=== PATIENT | male | born 1965 | race Caucasian/White ===

== ENCOUNTER 2018-10-03 08:36 | Emergency (ER) | payer SELFPAY ==
[2018-10-03] MEDS ORDERED: ASPIRIN 81 MG TABLET, CHEWABLE PO ONE ×2 (09:03→09:53)
[2018-10-03] MEDS ORDERED: MORPHINE SULFATE 10 MG/ML INJ IV ONE ×4 (09:14→19:45)
[2018-10-03] MEDS ORDERED: ONDANSETRON HCL INJ/PF 4 MG/2 ML SDV IV ONE (09:14)
[2018-10-03 09:18] LABS: ABSOLUTE EOSINOPHILS # (AUTO) 0.1 10^3/uL (0.0-0.6); ABSOLUTE LYMPHOCYTES (AUTO) 2.1 10^3/uL (0.5-4.7); ABSOLUTE MONOCYTES (AUTO) 0.4 10^3/uL (0.1-1.4); ABSOLUTE NEUT (AUTO) 11.3 10^3/uL (1.7-8.2); BASOPHILS % (AUTO) 0.3 % (0-2); HEMATOCRIT 42.6 % (37.9-51.0); HEMOGLOBIN 14.4 g/dL (13.5-17.0); LYMPHOCYTES % (AUTO) 14.8 % (13-45); MEAN CORPUSCULAR HEMOGLOBIN 30.6 pg (27.0-33.4); MEAN CORPUSCULAR HGB CONC 33.7 g/dL (32.0-36.0); MEAN CORPUSCULAR VOLUME 91 fl (80-97); MONOCYTES % (AUTO) 2.8 % (3-13); PLATELET COUNT 374 10^3/uL (150-450); RED BLOOD COUNT 4.68 10^6/uL (4.35-5.55); RED CELL DISTRIBUTION WIDTH 13.5 % (11.5-14.0); SEGMENTED NEUTROPHILS % (AUTO) 81.1 % (42-78); TOTAL CELLS COUNTED % (AUTO) 100 %; WHITE BLOOD COUNT 13.9 10^3/uL (4.0-10.5)
--- NOTE | 2018-10-03 09:35 | RADIOLOGY REPORT (SQ) ---
EXAM DESCRIPTION: CHEST SINGLE VIEW COMPLETED DATE/TIME: 10/03/2018 9:25 am REASON FOR STUDY: CHEST PAIN COMPARISON: CT ANGIO CHEST SAME DATE EXAM PARAMETERS: NUMBER OF VIEWS: One view. TECHNIQUE: Single frontal radiographic view of the chest acquired. RADIATION DOSE: NA LIMITATIONS: None. FINDINGS: LUNGS AND PLEURA: No opacities, masses or pneumothorax. No pleural effusion. MEDIASTINUM AND HILAR STRUCTURES: No masses. Contour normal. HEART AND VASCULAR STRUCTURES: Heart normal in size. Normal vasculature. BONES: No acute findings. HARDWARE: None in the chest. OTHER: No other significant finding. IMPRESSION: NO ACUTE RADIOGRAPHIC FINDING IN THE CHEST. TECHNICAL DOCUMENTATION: JOB ID: [id number] [employer]- All Rights Reserved Reading location - IP/workstation name: [email or web address]
[2018-10-03 09:44] LABS: ALANINE AMINOTRANSFERASE 38 U/L (21-72); ALBUMIN 4.4 g/dL (3.5-5.0); ALKALINE PHOSPHATASE 50 U/L (38-126); ANION GAP 8 (5-19); ASPARTATE AMINO TRANSFERASE 23 U/L (17-59); BILIRUBIN,DIRECT 0.2 mg/dL (0.0-0.4); BILIRUBIN,TOTAL 0.3 mg/dL (0.2-1.3); BLOOD UREA NITROGEN 15 mg/dL (7-20); CALCIUM 10.3 mg/dL (8.4-10.2); CARBON DIOXIDE 24 mmol/L (22-30); CHLORIDE 106 mmol/L (98-107); CREATINE KINASE 171 U/L (55-170); GLUCOSE 135 mg/dL (75-110); POTASSIUM 4.4 mmol/L (3.6-5.0); SODIUM 137.9 mmol/L (137-145); TOTAL PROTEIN 7.6 g/dL (6.3-8.2)
[2018-10-03 09:54] LABS: CREATINE KINASE MB 2.03 ng/mL (<4.55)
[2018-10-03 09:59] LABS: TROPONIN I < 0.012 ng/mL
--- NOTE | 2018-10-03 10:00 | RADIOLOGY REPORT (SQ) ---
EXAM DESCRIPTION: CTA CHEST COMPLETED DATE/TIME: 10/03/2018 9:42 am REASON FOR STUDY: Substernal upper back,cool,clammy, unequal radial COMPARISON: AP chest 10/03/2018 TECHNIQUE: CT scan of the chest performed using helical scanning technique with dynamic intravenous contrast injection. Images reviewed with lung, soft tissue and bone windows. Reconstructed coronal and sagittal MPR images reviewed. Additional 3 dimensional post-processing performed to develop Maximal Intensity Projection images ([place] P). All images stored on PACS. All CT scanners at this facility use dose modulation, iterative reconstruction, and/or weight based d osing when appropriate to reduce radiation dose to as low as reasonably achievable (ALARA). [facility]: Dose Right [facility]: CareDose [facility]: Dose Right [facility]: Teradose 4D [facility]: [employer] CONTRAST TYPE AND DOSE: contrast/concentration: Isovue 350.00 mg/ml; Total Contrast Delivered: 70.0 ml; Total Saline Delivered: 60.0 ml Contrast bolus optimized for the thoracic aorta. Suboptimal contrast bolus for pulmonary emboli RENAL FUNCTION: Deferred due to severity of the patient's condition RADIATION DOSE: CT Rad equipment meets quality standard of care and radiation dose reduction techniq ues were employed. CTDIvol: 21.2 - 29.8 mGy. DLP: 849 mGy-cm. . LIMITATIONS: None. FINDINGS: LUNGS AND PLEURA: No masses, infiltrates, or pneumothorax. No pleural effusions or pleura l calcifications. AORTA AND GREAT VESSELS: No thoracic aortic aneurysm. No thoracic aortic dissection. HEART: No pericardial effusion. Proximal LAD coronary artery calcification, axial images 65-67. PULMONARY ARTERIES: Bolus not timed for pulmonary artery evaluation. HILAR AND MEDIASTINAL STRUCTURES: No identified masses or abnormal nodes. HARDWARE: None in the chest. UPPER ABDOMEN: Multiple calcified stones in the gallbladder without pericholecystic fluid. Subcentim eter cysts in the left and right lobe liver. THYROID AND OTHER SOFT TISSUES: Mild gynecomastia BONES: No acute or significant finding. 3D MIPS: Confirm above findings. OTHER: No other significant finding. IMPRESSION: No CT angio evidence of thoracic aortic dissection. Results discussed with Dr. Walter, 0 940 hours 10/03/2018. COMMENT: Quality ID # [id number]: Final reports with documentation of one or more dose reduction techniques (e.g., Automated exposure control, adjustment of the mA and/or kV according to patient size, use of iterative reconstruction technique) TECHNICAL DOCUMENTATION: JOB ID: [id number] [employer] [facility] [employer]- All Rights Reserved Reading location - IP/workstation name: [email or web address]
[2018-10-03] MEDS ORDERED: MAG HYDROX/AL HYDROX/SIMETH SUSP 30 ML UDCUP PO ONE (10:30)
[2018-10-03] MEDS ORDERED: LIDOCAINE 2% VISCOUS SOLN 20 ML UDCUP PO ONE (10:30)
--- NOTE | 2018-10-03 12:21 | RADIOLOGY REPORT (SQ) ---
EXAM DESCRIPTION: U/S ABDOMEN LIMITED W/O DOP COMPLETED DATE/TIME: 10/03/2018 11:52 am REASON FOR STUDY: Multiple large stones. Chest pain. COMPARISON: None. TECHNIQUE: Dynamic and static grayscale images acquired of the abdomen and recorded on PACS. Additio jade selected color Doppler and spectral images recorded. LIMITATIONS: None. FINDINGS: PANCREAS: No masses. Visualized pancreatic duct normal caliber. LIVER: No masses. Increased echogenicity. Echotexture normal. LIVER VASCULATURE: Normal directional flow of the main portal vein and hepatic veins. GALLBLADDER: Multiple large gallstones. Normal wall thickness. No pericholecystic fluid. ULTRASOUND-DETECTED BELL'S SIGN: Negative. INTRAHEPATIC DUCTS AND COMMON DUCT: CBD and intrahepatic ducts normal caliber. No filling defects. INFERIOR VENA CAVA: Normal flow. AORTA: No aneurysm. RIGHT KIDNEY: Normal size. Normal echogenicity. No solid or suspicious masses. No hydronephrosis. No calcifications. PERITONEAL AND RIGHT PLEURAL SPACE: No ascites or effusions. OTHER: No other significant findings. IMPRESSION: 1. Multiple large gallstones without evidence of acute cholecystitis. No gallbladder w all thickening. No pericholecystic fluid. Negative sonographic Bell's sign. 2. Hepatic steatosis. TECHNICAL DOCUMENTATION: JOB ID: [id number] [employer]- All Rights Reserved Reading location - IP/workstation name: [email or web address]
--- NOTE | 2018-10-03 12:51 | EKG REPORT ---
SEVERITY:- NORMAL ECG - SINUS RHYTHM : Confirmed by: Deng Jean-Baptiste MD 03-Oct-2018 12:50:14
--- NOTE | 2018-10-03 14:43 | ER Document Report ---
Entered by PANKAJ CLEANING SCRIBE 10/03/18 0918 Acting as scribe for:RENEE KAY MD ED General - General Chief Complaint: Chest Pain > 30 Stated Complaint: CHEST PAIN Time Seen by Provider: 10/03/18 09:04 Mode of Arrival: Ambulatory Information source: Patient Notes: Patient is a 53 year old male with a prior history of drug abuse presents to the emergency department complaining of chest pain onset around 0600 this morning. Patient describes the pain as severe that is located substernally and radiates into his upper back. He states he had identical symptoms a few weeks ago that resolved after a few hours. He denies any exacerbating or relieving factors. When asked about heartburn, he denies this while his states he has been taking her heartburn medications recently and he was taking a lot of Tums last night. Patient states the last time he saw a doctor was when he came to the emergency room here on 01/12/2016 for foreign body to the eye. He takes no regular medications. The patient reports that he used to abuse crack cocaine and methamphetamine regularly. He states he has not used anything since 2015. When he was seen here in January 2016, the chart noted that he was "in recovery" at that time. TRAVEL OUTSIDE OF THE [place] IN LAST 30 DAYS: No - Related Data Allergies/Adverse Reactions: No Known Allergies Allergy (Verified 10/03/18 08:39) Past Medical History - General Information source: Patient - Social History Smoking Status: Former Smoker Cigarette use (# per day): No Chew tobacco use (# tins/day): No Smoking Education Provided: No Frequency of alcohol use: None Family History: Reviewed & Not Pertinent Psychiatric Medical History: Reports: Hx Bipolar Disorder Review of Systems - Review of Systems Constitutional: No symptoms reported EENT: No symptoms reported Cardiovascular: See HPI, Chest pain Respiratory: No symptoms reported Gastrointestinal: See HPI Genitourinary: No symptoms reported Musculoskeletal: No symptoms reported Skin: No symptoms reported Hematologic/Lymphatic: No symptoms reported Neurological/Psychological: No symptoms reported -: Yes All other systems reviewed and negative Physical Exam - Vital signs Vitals: Temp Pulse Resp BP Pulse Ox 97.3 F 58 L 18 163/82 H 100 10/03/18 08:46 10/03/18 08:46 10/03/18 08:46 10/03/18 08:46 10/03/18 08:46 - Notes Notes: GENERAL: Alert, appears uncomfortable, writhing in bed. Hyperventilating. HEAD: Normocephalic, atraumatic. EYES: Pupils equal, round, and reactive to light. Extraocular movements intact. ENT: Oral mucosa moist, tongue midline. NECK: Full range of motion. Supple. Trachea midline. LUNGS: Hyperventilating. Clear to auscultation bilaterally, no wheezes, rales, or rhonchi. No respiratory distress. No tenderness to chest wall. HEART: Regular rate and rhythm. No murmurs, gallops, or rubs. ABDOMEN: Soft, No RUQ tenderness to deep palpation. Non-distended. Bowel sounds present in all 4 quadrants. No guarding, rigidity, or rebound. EXTREMITIES: Moves all 4 extremities spontaneously. Right radial pulse is weaker on the right than left. NEUROLOGICAL: Alert and oriented x3. Normal speech. PSYCH: Normal affect, normal mood. SKIN: Cool, clammy, diaphoretic. BACK: No tenderness to palpation. Course - Re-evaluation Re-evalutation: 10/03/18 10:22 The patient CTA chest did not show an explanation for his discomfort. There was no aortic dissection. There was noted to be significant calcification to the proximal LAD coronary artery. He also had multiple large gallstones without pericholecystic fluid or gallbladder wall thickening. He does not show any tenderness to right upper quadrant abdomen palpation. His EKG does not show ischemic changes. I did place a call to the [facility] cardiac connection. We will send the CT images along with the demographic page and she will have 1 of their foreign language stenographer look at the scans. 10/03/18 11:08 I discussed the case with the responding foreign language stenographer at [facility]. He felt that since there are no EKG changes, no troponin elevation, that he should be seen by foreign language stenographer here and would be happy to take the patient for catheterization if the local foreign language stenographer felt it should be done. I immediately called Dr. Dye and discussed the case with him. He is in his office and will pull up the CT films and look at them and call me back. 10/03/18 12:29 Dr. Spivey did call me back and felt that the symptoms were not likely cardiac. I did have a gallbladder ultrasound showing multiple large stones but no pericholecystic fluid or gallbladder wall thickening. He requests that I do a HIDA scan to see if that is where his symptoms are coming from. The patient stated that the GI cocktail did not improve his symptoms at all, only the pain medications. 10/03/18 14:33 Unable to do Hida scan due to the narcotic management of his pain. I discussed this with Dr. Dye, and at that point he stated the patient should probably go to [facility] and get a catheterization. 10/03/18 14:[address] a call to refer direct, and they are going to talk with the cardiac connection and then call me back. 10/03/18 14:53 The cardiac fellow with cardiac connection called back and we discussed the case again. He wanted to know why I was consulting him, and I told him I had called this time requesting to speak with the hospitalist. They are going to page the hospitalist at this time. 10/03/18 15:14 Referred direct called back and stated a Dr. New would accept the patient on the hospitalist service. - Vital Signs Vital signs: Temp Pulse Resp BP Pulse Ox 97.3 F 58 L 15 137/58 H 96 10/03/18 08:46 10/03/18 08:46 10/03/18 13:03 10/03/18 13:03 10/03/18 13:03 - Laboratory Result Diagrams: 10/03/18 09:00 10/03/18 09:00 Laboratory results interpreted by me: 10/03/18 10/03/18 10/03/18 09:00 09:00 09:00 WBC 13.9 H Seg Neutrophils % 81.1 H Monocytes % 2.8 L Absolute Neutrophils 11.3 H Glucose 135 H Calcium 10.3 H Creatine Kinase 171 H Lipase 316.0 H - Diagnostic Test Radiology reviewed: Image reviewed, Reports reviewed - CTA of the chest does not show aortic dissection. There is areas of heavy calcification in the left anterior descending coronary artery. There are multiple large calcified gallstones in the gallbladder. The gallbladder ultrasound has a negative Bell sign, multiple large stones, no pericholecystic fluid or gallbladder wall thickening. - EKG Interpretation by Me EKG shows normal: Sinus rhythm, [place], Intervals, QRS Complexes, ST-T Waves Rate: Normal - 63 Rhythm: NSR - Transfer of Care Care transferred to following provider: Dr. Thompson Notes: 10/03/18 15:53 Patient is currently waiting on bed assignment at [facility]. Discharge - Discharge Clinical Impression: Chest pain Qualifiers: Chest pain type: unspecified Qualified Code(s): R07.9 - Chest pain, unspecified Coronary artery disease Qualifiers: Coronary Disease-Associated Artery/Lesion type: due to calcified coronary lesion Qualified Code(s): I25.10 - Atherosclerotic heart disease of [place] coronary artery without angina pectoris; I25.84 - Coronary atherosclerosis due to calcified coronary lesion High blood pressure Qualifiers: Hypertension type: essential hypertension Qualified Code(s): I10 - Essential (primary) hypertension Condition: Stable Disposition: [facility] I personally performed the services described in the documentation, reviewed and edited the documentation which was dictated to the scribe in my presence, and it accurately records my words and actions.
[2018-10-03] MEDS ORDERED: NORMAL SALINE 1000 ML 1,000 ML IV ONE (14:52)
[2018-10-03 15:50] LABS: APPEARANCE,URINE CLEAR; BILIRUBIN,URINE NEGATIVE (NEGATIVE); COLOR,URINE YELLOW; GLUCOSE, URINE NEGATIVE (NEGATIVE); KETONES,URINE NEGATIVE (NEGATIVE); LEUKOCYTE ESTERASE,URINE NEGATIVE (NEGATIVE); NITRITE,URINE NEGATIVE (NEGATIVE); PROTEIN,URINE NEGATIVE (NEGATIVE); URINE SPECIFIC GRAVITY 1.028; UROBILINOGEN,URINE NEGATIVE mg/dL (<2.0)
--- NOTE | 2018-10-03 19:24 | RADIOLOGY REPORT (SQ) ---
EXAM DESCRIPTION: NM HIDA SCAN COMPLETED DATE/TIME: 10/03/2018 7:19 pm REASON FOR STUDY: Multiple gallstones, severe chest pain COMPARISON: Ultrasound abdomen RADIONUCLIDE AND DOSE: DOSAGE RADIONUCLIDE: 5.45 millicuries Tc99m Mebrofenin. DOSAGE MORPHINE: Not required. The route of agent administration: Intravenous TECHNIQUE: Serial imaging right upper quadrant up to 60 minutes following injection of radionuclide. Patient imaged AP and Right Lateral. LIMITATIONS: None. FINDINGS: LIVER: Normal visualization without areas of photopenia. INTRA-HEPATIC BILE DUCTS: Temporal visualization normal. No dilatation. COMMON BILE DUCT: Normal without dilatation or delayed visualization. GALLBLADDER: Normal visualization. OTHER: No other significant finding. IMPRESSION: NORMAL STUDY WITHOUT CYSTIC OR COMMON DUCT OBSTRUCTION. TECHNICAL DOCUMENTATION: JOB ID: [id number] [employer]- All Rights Reserved Reading location - IP/workstation name: [email or web address]
[2018-10-03 19:55] VITALS: BP 139/93
== END 2018-10-03 19:59 | disposition short-term general hospital (02) ==
LOC: ER 08:36
DX: R07.9 Chest pain, unspecified (principal); I25.10 Atherosclerotic heart disease of native coronary artery without angina pectoris; I25.84 Coronary atherosclerosis due to calcified coronary lesion; R06.4 Hyperventilation; I10 Essential (primary) hypertension
CPT/HCPCS: 93005; 96376; 99285; 96361; 96374; 96375; 36415; 82553; 82550; 83690; 85025; 80053; 81001; 84484; 71045; 76705; 78226; 71275; 93010; A9537; J3490; J2270; J2405; J7030; Q9969